=== PATIENT | male | born 1995 | race Caucasian/White ===

== ENCOUNTER → 2019-04-28 | Outpatient (CLI) | payer OTHER ==
--- NOTE | 2019-05-04 13:55 | HM ---
HOLTER MONITOR REPORT DATE OF SERVICE: 04/28/2019 The patient was monitored for 24 hours. The baseline rhythm appeared to be sinus mechanism with a minimum heart rate of 36, maximum 138 and average of 70 beats per minute. Ventricular ectopic events seen rarely. Supraventricular ectopic events seen also over rarely. The patient did have nonconducted PAC noted. No evidence of any significant sinus pause or sinus arrest seen. No evidence of any advanced AV block seen. CONCLUSION: 1. Sinus rhythm as a baseline mechanism. 2. Rare ventricular ectopic events. 3. Rare supraventricular ectopic events. 4. The patient did have one nonconducted PAC noted. 5. No evidence of any significant sinus pause or sinus arrest seen. MMODL / IJN: [id number] /
== END | disposition home or self-care (01) ==
LOC: RADECHMAIN 12:21
PROVIDERS: ATTEND Internal Medicine
DX: I49.1 Atrial premature depolarization (principal)
CPT/HCPCS: 93225; 93226